=== PATIENT | female | born 1950 | race Caucasian/White ===

== ENCOUNTER 2019-07-03 14:01 | Emergency (ER) | payer OTHER, MEDICARE, BC ==
[~2019-07-03] VITALS: Ht 157.5 cm; Wt 81.7 kg
[2019-07-03] MEDS ORDERED: ATOR20 PO (14:57)
[2019-07-03] MEDS ORDERED: BLOOD PRESSURE MED (14:57)
[2019-07-03] MEDS ORDERED: TYLECOD3 PO (16:18)
== END 2019-07-03 16:24 | disposition home or self-care (01) ==
LOC: ER 14:01
DX: S93.602A Unspecified sprain of left foot, initial encounter (principal); S00.12XA Contusion of left eyelid and periocular area, initial encounter; S80.211A Abrasion, right knee, initial encounter; I10 Essential (primary) hypertension; E78.5 Hyperlipidemia, unspecified; Z88.5 Allergy status to narcotic agent; Z79.899 Other long term (current) drug therapy; W19.XXXA Unspecified fall, initial encounter; Y92.481 Parking lot as the place of occurrence of the external cause
CPT/HCPCS: 73630; 99283-25; A9270-GY

== ENCOUNTER 2024-11-03 10:03 | Day surgery (SDC) | payer MEDICARE, BC ==
[~2024-11-03] VITALS: Ht 157.5 cm; Wt 62.8 kg
[~2024-11-03 10:03] MED LIST: ATOR20 PO; BLOOD PRESSURE MED; NS 500 ML IV ONE; TYLECOD3 PO
[2024-11-03] MEDS ORDERED: MONT10T PO (10:49)
[2024-11-03] MEDS ORDERED: LOSA50 PO (10:49)
[2024-11-03] MEDS ORDERED: ALBU90OI INH (10:50)
[2024-11-03] MEDS ORDERED: GABA100 PO (10:54)
[2024-11-03] MEDS ORDERED: NS 500 ML IV ONE (11:05)
--- NOTE | 2024-11-03 11:09 | NUR ---
11/03/24 1109 Leeanne Rivas TIME OUT PERFORMED AT BEDSIDE WITH DR BRAMBILA AT 1056 IMMEDIATELY PRIOR TO INJECTION OF 5ML OF SOLUTION OF 1ML 8.4% SODIUM BICARBONATE AND 9ML 1% LIDOCAINE WITH EPI [id number] INTO LEFT HAND. PATIENT TOLERATED PROCEDURE WELL.
[2024-11-03] MEDS ORDERED: Lidocaine HCl 2% 10 ML SDA ONE (11:43)
[2024-11-03] MEDS ORDERED: Triamcinolone Inj Susp 40 MG / ML 1ML Vial ONE (11:43)
[2024-11-03] MEDS ORDERED: Midazolam HCl 1MG / ML 2ML Vial ONE (11:47)
[2024-11-03] MEDS ORDERED: Dexamethasone Sod Phos 10 MG/ML 1ML VIAL ONE (11:48)
[2024-11-03] MEDS ORDERED: Ondansetron HCl 2 MG / ML 2ML Vial ONE (11:48)
[2024-11-03 12:38] VITALS: BP 104/60
== END 2024-11-03 12:37 | disposition home or self-care (01) ==
LOC: ORSCSDS 10:03
PROVIDERS: Orthopaedic Surgery
PROC: 0JBK0ZZ Excision of Left Hand Subcutaneous Tissue and Fascia, Open Approach (ICD-10-PCS; principal; 2024-11-03 12:30)
PROC: 3E0U33Z Introduction of Anti-inflammatory into Joints, Percutaneous Approach (ICD-10-PCS; principal; 2024-11-03 12:30)
DX: R22.32 Localized swelling, mass and lump, left upper limb (principal); D18.01 Hemangioma of skin and subcutaneous tissue; M18.12 Unilateral primary osteoarthritis of first carpometacarpal joint, left hand; F41.9 Anxiety disorder, unspecified; I10 Essential (primary) hypertension; E78.5 Hyperlipidemia, unspecified; J45.909 Unspecified asthma, uncomplicated; Z79.899 Other long term (current) drug therapy
CPT/HCPCS: 88305; J1100; J2003; J2250; J2405; J3301; J7040